=== PATIENT | female | born 1950 | race Caucasian/White ===

== ENCOUNTER → 2019-01-20 | Outpatient (CLI) | payer OTHER ==
--- NOTE | 2019-01-20 17:06 | PCVCIMAG ---
APPROVED REPORT Study performed: 01/20/2019 13:57:35 Exam: Stress Echocardiogram Indication: ABN EKG,PRE-OP CL,DYSPNEA Patient Location: Echo lab Stress Nurse: Samra Chavira RN Room #: 2 Status: routine Ht: 5 ft 1 in HR: 81 bpm BP: 146/94 mmHg Rhythm: NSR Medical History Medical History: hyperparathyroidism,hypercalcemia Cardiac Risk Factors: FHX of CAD Previous Cardiac Procedures: none Pretest Chest Pain Characteristics: No chest pain Exercise History: Sedentary Procedure The patient underwent an Exercise Stress Test using the Jethro Protocol. Blood pressure, heart rate, and EKG were monitored. An Echocardiogram was performed by safety technician in four stages in quad fashion. At peak stress, four selected images were obtained and placed side by side with resting images for comparison. Stress Test Details Stress Test: Exercise stress testing was performed using a Jethro protocol. HR Resting HR: 81 bpmMax Heart Rate (APMHR): 154 bpm Max HR Achieved: 162 bpmTarget HR (85% APMHR): 130 bpm % of APMHR: 105 Recovery HR: 86 bpm HR response to stress: Normal HR response to stress BP Resting BP: 146/94 mmHg Max BP: 210/88 mmHg Recovery BP: 168/82 mmHg BP response to stress: hypertensive response to exercise ECG Resting ECG: Sinus Rhythm, nonspecific ST-T abnormalities Stress ECG: Sinus Rhythm, NSSTT changes ST Change: Non-ischemic Maximum ST Deviation: 0.5 mm Arrhythmia: occ PACs, PVCs Recovery ECG: Sinus Rhythm, NSSTT changes Recovery ST Change: Non-ischemic Recovery ST Deviation: 0 mm Recovery Arrhythmia: occasional PACs Clinical Reason for Termination: Maximal effort Stress Symptoms: leg fatigue Exercise duration: 4 min 14 sec Highest Stage Achieved: Stage 1: 1.7 mph at 10% grade. Exercise capacity: 4.6 METs Overall Exercise Capacity for Age: Poor Scale: Sedentary Angina Score: None No complications. Stress ECG Conclusion The patient exercised according to the JETHRO protocol for 4:14 mins; achieving a work level of 4.6 METS. The resting heart rate of 81 bpm augusto to a maximum heart rate of 162 bpm. This value represents 105% of the maximal, age-predicted heart rate. The resting blood pressure of 146/94mmHg, augusto to a maximum blood pressure of 210/88 mmHg. The exercise test was stopped due to dyspnea and fatigue. Dalal Treadmill Score is 1.5 which is Moderate risk. Pre-Stress Echo The resting Echocardiogram showed normal left ventricular contractility with an estimated Ejection Fraction of about 55-60%. Normal wall motion in all segments on baseline images. Post-Stress Echo The stress Echocardiogram showed normal left ventricular contractility with an estimated Ejection Fraction of about 60-65%. Normal augmentation of wall motion in all segments on post stress images. Clinical No clinical or ECG evidence for ischemia. Conclusion Clinical Response: Non-ischemic Exercise Capacity: Below Average Stress ECG Response: Non-ischemic Stress Echo Images: Non-ischemic No clinical, EKG or echocardiographic evidence for ischemia. No echocardiographic evidence for exercise induced ischemia. Normal stress echocardiogram with maximal exercise stress. No prior study available for comparison. <Conclusion> No clinical, EKG or echocardiographic evidence for ischemia. No echocardiographic evidence for exercise induced ischemia. Normal stress echocardiogram with maximal exercise stress.
== END | disposition home or self-care (01) ==
LOC: PCVCIMAG 13:37
PROVIDERS: ATTEND Internal Medicine
DX: Z01.818 Encounter for other preprocedural examination (principal); R94.31 Abnormal electrocardiogram [ECG] [EKG]; R06.09 Other forms of dyspnea; E21.3 Hyperparathyroidism, unspecified; E21.0 Primary hyperparathyroidism; E78.5 Hyperlipidemia, unspecified
CPT/HCPCS: 93325; 93351